=== PATIENT | female | born 1980 | race Two or more races ===

== ENCOUNTER 2022-04-07 14:30 | Outpatient (CLI) | payer OTHER ==
[~2022-04-07 14:30] MED LIST: COZAAR50 MG PO; PEPCID AC20 MG PO; ZOFRAN8 MG PO
== END 2022-04-07 14:35 | disposition home or self-care (01) ==
LOC: PPH VACUNA 14:30
PROVIDERS: ATTEND Emergency Medicine Pediatric Emergency Medicine
DX: Z23 Encounter for immunization (principal)

== ENCOUNTER 2022-09-27 20:20 | Emergency (ER) | payer OTHER ==
[~2022-09-27] VITALS: Ht 170.2 cm; Wt 81.6 kg
== END 2022-09-28 03:26 | disposition home or self-care (01) ==
LOC: ER 20:20
DX: R19.09 Other intra-abdominal and pelvic swelling, mass and lump (principal); I10 Essential (primary) hypertension